=== PATIENT | male | born 1970 | race Caucasian/White ===

== ENCOUNTER 2019-09-27 12:24 | Inpatient (IN) | payer MEDICARE, OTHER ==
[2019-09-27] VITALS (21 sets, daily range): BP systolic 64–186; BP diastolic 19–145
[~2019-09-27] VITALS: Ht 185.4 cm; Wt 86.6 kg
[2019-09-27] MEDS ORDERED: ETOMIDATE 2MG/ML 10ML VIAL IV ONE (12:45)
[2019-09-27] MEDS ORDERED: SUCCINYLCHOLINE CHLORIDE 200MG/10ML IV ONE (12:45)
[2019-09-27] MEDS ORDERED: PROPOFOL 200MG/20ML VIAL IV ONE (12:45)
[2019-09-27] MEDS ORDERED: VANCOMYCIN 1 G PREMIX 200 ML IV ONE (12:45)
[2019-09-27] MEDS ORDERED: PIPERACILLIN/TAZ 3.375G PREMIX 50 ML IV ONE ×2 (12:45→18:00)
[2019-09-27] MEDS ORDERED: SODIUM CHLORIDE 0.9% 1000ML BAG (SEPSIS BOLUS) IV ONE (12:45)
[2019-09-27] MEDS ORDERED: NALOXONE HCL 1 MG/ML 2ML VIAL ONE (12:46)
[2019-09-27] MEDS ORDERED: NOREPINEPHRINE 4MG/250ML PMX 250 ML IV ONE ×3 (12:56→16:14)
[2019-09-27 13:14] LABS: HEMATOCRIT. 43.3 % (42.0-52.0); HEMOGLOBIN. 14.3 g/dL (14.0-18.0); MEAN CORPUSCULAR HEMOGLOBIN 31.3 pg (28.0-32.0); MEAN CORPUSCULAR VOLUME 94.8 fL (80.0-94.0); MEAN PLATELET VOLUME 7.9 fl (7.4-10.4); PLATELET 336 x1000/uL (130-400); RED BLOOD CELL COUNT 4.57 mill/uL (4.7-6.1); RED CELL DISTRIBUTION WIDTH 14.5 % (11.6-14.6)
[2019-09-27 13:16] LABS: PARTIAL THROMBOPLASTIN TIME 41.1 sec (23.4-31.0); PROTHROMBIN TIME 10.3 sec (9.6-11.0)
[2019-09-27 13:23] LABS: CHLORIDE 69 mEq/L (98-107)
[2019-09-27 13:27] LABS: ETHANOL BLOOD < 10 mg/dL
[2019-09-27] MEDS ORDERED: CALCIUM CHLORIDE 1GM/10ML SYR IV ONE ×2 (13:45→14:15)
[2019-09-27] MEDS ORDERED: SODIUM POLYSTYRENE SULFONATE 15 G/60 ML BOT NG ONE (13:45)
[2019-09-27] MEDS ORDERED: INSULIN REGULAR (HUMULIN R) 300UNITS/3ML IV ONE (13:45)
[2019-09-27] MEDS ORDERED: DEXTROSE 50% WATER 50ML SYRINGE IV ONE (13:45)
[2019-09-27] MEDS ORDERED: ALBUTEROL (0.083%) 2.5MG/3ML NEB HHN ONE (13:45)
[2019-09-27] MEDS ORDERED: VECURONIUM BROMIDE 10 MG/VIAL IV ONE (13:45)
[2019-09-27] MEDS ORDERED: SODIUM BICARBONATE 8.4% 1 MEQ/ML 50ML SYR IV ONE ×2 (13:45→14:45)
[2019-09-27] MEDS ORDERED: PROPOFOL 10MG/ML 100ML 100 ML IV SCH (13:45)
[2019-09-27] MEDS ORDERED: LACTULOSE 20G/30ML UDC NG ONE (14:00)
[2019-09-27 14:33] LABS: NUCLEATED RED BLOOD CELLS 3 /100 WBC; PLATELET ESTIMATE NORMAL
[2019-09-27 14:33] LABS: BG BASE EXCESS -26.4 mmol/L (-2.0-2.0); BG CARBOXYHEMOGLOBIN 0.1 % (0.5-1.5); BG DEOXYHEMOGLOBIN 0.4 % (0.0-5.0); BG FRACTION INSPIRED OXYGEN 100; BG HCO3 ACT 6.2 mmol/L (22.0-26.0); BG METHEMOGLOBIN 0.5 % (0.0-1.5); BG OXYGEN SATURATION 99.6 % (92.0-98.5); BG PCO2 34.3 mmHg (35.0-45.0); BG PH 6.875 (7.350-7.450); BG PO2 410.8 mmHg (75.0-100.0); BG SAMPLE SITE RIGHT RADIAL; BG TIDAL VOLUME(mL) 550 mL; BG TOTAL HEMOGLOBIN 12.5 g/dL (12.0-18.0); BG VENT MODE VENT - A/C; BG VENT RATE 16 set
[2019-09-27] MEDS ORDERED: ACETAMINOPHEN 650MG SUPP PR PRN (15:00)
[2019-09-27] MEDS ORDERED: NOREPINEPHRINE 4 MG in DEXT 5% WATER 246 ML IV PRN (15:45)
[2019-09-27] MEDS ORDERED: PHENYLEPHRINE 10 MG in DEXT 5% WATER 249 ML IV PRN (15:45)
[2019-09-27] MEDS ORDERED: IPRATROPIUM/ALBUTEROL 0.5-3(2.5)MG/3ML NEB HHN PRN (15:45)
[2019-09-27] MEDS ORDERED: SODIUM BICARBONATE 8.4% 1 MEQ/ML 50ML SYR IV NR (17:57)
[2019-09-27] MEDS: PHENYLEPHRINE 40 MG in DEXT 5% WATER 246 ML IV PRN ×2 (18:12→22:38)
[2019-09-27] MEDS: NOREPINEPHRINE 16 MG in DEXT 5% WATER 234 ML IV PRN (18:12)
[2019-09-27] MEDS: VASOPRESSIN 10 UNIT in SODIUM CHLORIDE 0.9% 99.5 ML IV PRN ×2 (19:13→23:02)
[2019-09-27] MEDS ORDERED: DOPAMINE 800MG PREMIX (DOUBLE) 250 ML IV PRN (20:00)
[2019-09-27] MEDS: IPRATROPIUM/ALBUTEROL 0.5-3(2.5)MG/3ML NEB HHN SCH (20:05)
[2019-09-27] MEDS ORDERED: VANCOMYCIN 1 G PREMIX 200 ML IV NR (21:00)
[2019-09-27] MEDS ORDERED: SODIUM BICARBONATE 150 MEQ in SODIUM CHLORIDE 0.45% 1,000 ML IV SCH (21:00)
[2019-09-27] MEDS: HEPARIN 5000 UNITS/ML VIAL SUBCUT SCH (21:00)
[2019-09-27] MEDS: PROPOFOL 10MG/ML 100ML 100 ML IV PRN (23:05)
[2019-09-27] MEDS: PIPERACILLIN/TAZOBACTAM 2.25 G in DEXTROSE 5% WATER 50 ML IV SCH (23:25)
[2019-09-28] VITALS (111 sets, daily range): BP systolic 67–190; BP diastolic 32–104
[2019-09-28 01:06] LABS: BG BASE EXCESS -4.9 mmol/L (-2.0-2.0); BG CARBOXYHEMOGLOBIN 0.8 % (0.5-1.5); BG DEOXYHEMOGLOBIN 1.3 % (0.0-5.0); BG FRACTION INSPIRED OXYGEN 50; BG HCO3 ACT 19.1 mmol/L (22.0-26.0); BG METHEMOGLOBIN 0.3 % (0.0-1.5); BG OXYGEN SATURATION 98.7 % (92.0-98.5); BG OXYHEMOGLOBIN 97.6 % (94.0-97.0); BG PCO2 32.5 mmHg (35.0-45.0); BG PH 7.386 (7.350-7.450); BG PIP 27 cmH2O; BG PO2 143.8 mmHg (75.0-100.0); BG SAMPLE SITE RIGHT RADIAL; BG TIDAL VOLUME(mL) 550 mL; BG TOTAL HEMOGLOBIN 14.8 g/dL (12.0-18.0); BG VENT MODE VENT - A/C; BG VENT RATE 24 set
[2019-09-28] MEDS: PROPOFOL 10MG/ML 100ML 100 ML IV PRN (01:37)
[2019-09-28] MEDS: PIPERACILLIN/TAZOBACTAM 2.25 G in DEXTROSE 5% WATER 50 ML IV SCH ×4 (01:44→20:04)
[2019-09-28] MEDS: IPRATROPIUM/ALBUTEROL 0.5-3(2.5)MG/3ML NEB HHN SCH ×4 (02:04→20:14)
[2019-09-28] MEDS: PHENYLEPHRINE 40 MG in DEXT 5% WATER 246 ML IV PRN (02:19)
[2019-09-28] MEDS: NOREPINEPHRINE 16 MG in DEXT 5% WATER 234 ML IV PRN (02:21)
[2019-09-28] MEDS: VASOPRESSIN 10 UNIT in SODIUM CHLORIDE 0.9% 99.5 ML IV PRN ×2 (02:49→06:26)
[2019-09-28 05:35] LABS: CHLORIDE 102 mEq/L (98-107)
[2019-09-28 05:39] LABS: HEMATOCRIT. 38.3 % (42.0-52.0); HEMOGLOBIN. 13.1 g/dL (14.0-18.0); MEAN CORPUSCULAR HEMOGLOBIN 31.2 pg (28.0-32.0); MEAN CORPUSCULAR VOLUME 91.2 fL (80.0-94.0); MEAN PLATELET VOLUME 7.6 fl (7.4-10.4); PLATELET 184 x1000/uL (130-400); RED CELL DISTRIBUTION WIDTH 14.3 % (11.6-14.6)
[2019-09-28] MEDS: PHENYLEPHRINE 80 MG in DEXT 5% WATER 492 ML IV PRN (06:27)
[2019-09-28 07:41] LABS: BG BASE EXCESS -5.3 mmol/L (-2.0-2.0); BG CARBOXYHEMOGLOBIN 0.4 % (0.5-1.5); BG DEOXYHEMOGLOBIN 2.1 % (0.0-5.0); BG FRACTION INSPIRED OXYGEN 50; BG HCO3 ACT 18.6 mmol/L (22.0-26.0); BG METHEMOGLOBIN 0.1 % (0.0-1.5); BG OXYGEN SATURATION 97.9 % (92.0-98.5); BG OXYHEMOGLOBIN 97.4 % (94.0-97.0); BG PCO2 31.9 mmHg (35.0-45.0); BG PH 7.383 (7.350-7.450); BG PO2 119.7 mmHg (75.0-100.0); BG SAMPLE SITE RIGHT RADIAL; BG TIDAL VOLUME(mL) 550 mL; BG TOTAL HEMOGLOBIN 14.5 g/dL (12.0-18.0); BG VENT MODE VENT - A/C; BG VENT RATE 24 set
[2019-09-28] MEDS ORDERED: KCL 20MEQ/100ML PREMIX 100 ML IV ONE (08:00)
[2019-09-28] MEDS: PANTOPRAZOLE SODIUM 40 MG/VIAL IV SCH (08:04)
[2019-09-28] MEDS: HEPARIN 5000 UNITS/ML VIAL SUBCUT SCH ×2 (08:06→20:04)
[2019-09-28] MEDS: WATER IV PRN (08:43)
[2019-09-28] MEDS: DEXT 5% IV PRN (08:43)
[2019-09-28] MEDS: NOREPINEPHRINE IV PRN (08:43)
[2019-09-28 09:01] LABS: NUCLEATED RED BLOOD CELLS 4 /100 WBC
[2019-09-28 09:02] LABS: PLATELET ESTIMATE NORMAL
[2019-09-28] MEDS: SODIUM BICARBONATE 100 MEQ in DEXTROSE 5% WATER 1,000 ML IV SCH (09:10)
[2019-09-28] MEDS: ACETAMINOPHEN 325MG TABLET PO PRN (09:10)
[2019-09-28] MEDS ORDERED: HYDR50SY PO (09:45)
[2019-09-28] MEDS ORDERED: GABA300S PO (09:45)
[2019-09-28] MEDS ORDERED: QUET200T MT (09:45)
[2019-09-28] MEDS ORDERED: LURA80TA PO (09:45)
[2019-09-28] MEDS ORDERED: SERT100T MT (09:45)
[2019-09-28] MEDS ORDERED: FENTANYL CITRATE/PF 500 MCG in SODIUM CHLORIDE 0.9% 40 ML IV PRN (10:30)
[2019-09-28 16:14] LABS: CLARITY URINE TURBID (CLEAR); COLOR URINE DARK YELLOW (YELLOW); KETONES URINE TRACE (NEGATIVE); LEUKOCYTE ESTERASE URINE TRACE (NEGATIVE); NITRITE URINE NEGATIVE (NEGATIVE); OCCULT BLOOD URINE 3+ (NEGATIVE); PROTEIN URINE 2+ (NEGATIVE); SPECIFIC GRAVITY URINE 1.016 (1.005-1.030); UROBILINOGEN URINE 0.2 E.U./dL (0.2-1.0)
[2019-09-28] MEDS ORDERED: SODIUM BICARBONATE 100 MEQ in DEXTROSE 5% WATER 1,000 ML IV SCH (16:15)
[2019-09-28 16:31] LABS: CANNABINOID URINE SCREEN PRESUMTIVE POSITIVE (NEGATIVE); PHENCYCLIDINE URINE SCREEN NEGATIVE (NEGATIVE)
[2019-09-28 16:32] LABS: *AMPHETAMINES SCREEN URINE NEGATIVE (NEGATIVE); *BARBITURATES SCREEN URINE NEGATIVE (NEGATIVE); *BENZODIAZEPINES SCREEN URINE NEGATIVE (NEGATIVE); *COCAINE SCREEN URINE NEGATIVE (NEGATIVE); METHADONE URINE SCREEN NEGATIVE (NEGATIVE); OPIATES URINE SCREEN NEGATIVE (NEGATIVE)
[2019-09-28] MEDS: LORAZEPAM 2MG/ML CPJ IV PRN (22:20)
[2019-09-29] VITALS (93 sets, daily range): BP systolic 69–191; BP diastolic 38–119
[2019-09-29] MEDS: PIPERACILLIN/TAZOBACTAM 2.25 G in DEXTROSE 5% WATER 50 ML IV SCH ×2 (01:16→07:49)
[2019-09-29] MEDS: SODIUM BICARBONATE 100 MEQ in DEXTROSE 5% WATER 1,000 ML IV SCH (03:44)
[2019-09-29] MEDS: IPRATROPIUM/ALBUTEROL 0.5-3(2.5)MG/3ML NEB HHN SCH ×4 (04:10→20:34)
[2019-09-29] MEDS: LORAZEPAM 2MG/ML CPJ IV PRN (04:34)
[2019-09-29 05:37] LABS: HEMATOCRIT. 37.6 % (42.0-52.0); HEMOGLOBIN. 12.6 g/dL (14.0-18.0); MEAN CORPUSCULAR HEMOGLOBIN 30.3 pg (28.0-32.0); MEAN CORPUSCULAR VOLUME 90.9 fL (80.0-94.0); MEAN PLATELET VOLUME 7.9 fl (7.4-10.4); PLATELET 149 x1000/uL (130-400); RED BLOOD CELL COUNT 4.14 mill/uL (4.7-6.1); RED CELL DISTRIBUTION WIDTH 14.4 % (11.6-14.6)
[2019-09-29 05:54] LABS: PHOSPHORUS 8.1 mg/dL (2.5-4.9)
[2019-09-29] MEDS: PANTOPRAZOLE SODIUM 40 MG/VIAL IV SCH (07:47)
[2019-09-29] MEDS: HEPARIN 5000 UNITS/ML VIAL SUBCUT SCH ×2 (07:49→23:03)
[2019-09-29] MEDS: PHENYLEPHRINE 80 MG in DEXT 5% WATER 492 ML IV PRN (07:50)
[2019-09-29] MEDS: DEXT 5% IV PRN (07:50)
[2019-09-29] MEDS: WATER IV PRN (07:50)
[2019-09-29] MEDS: NOREPINEPHRINE IV PRN (07:50)
[2019-09-29 07:52] LABS: PLATELET ESTIMATE NORMAL
[2019-09-29 08:00] LABS: BG BASE EXCESS 0.1 mmol/L (-2.0-2.0); BG CARBOXYHEMOGLOBIN 0.3 % (0.5-1.5); BG DEOXYHEMOGLOBIN 4.4 % (0.0-5.0); BG FRACTION INSPIRED OXYGEN 40; BG HCO3 ACT 24.8 mmol/L (22.0-26.0); BG METHEMOGLOBIN 0.4 % (0.0-1.5); BG OXYGEN SATURATION 95.6 % (92.0-98.5); BG OXYHEMOGLOBIN 94.9 % (94.0-97.0); BG PCO2 40.6 mmHg (35.0-45.0); BG PH 7.404 (7.350-7.450); BG PO2 83.5 mmHg (75.0-100.0); BG SAMPLE SITE RIGHT BRACHIAL; BG TIDAL VOLUME(mL) 550 mL; BG TOTAL HEMOGLOBIN 12.7 g/dL (12.0-18.0); BG VENT MODE VENT - A/C; BG VENT RATE 20 set
[2019-09-29] MEDS ORDERED: POTASSIUM CHLORIDE 20MEQ TABLET SR PO NR (08:30)
[2019-09-29] MEDS: ALBUMIN HUMAN 25GM/500ML (5%) IV NR ×2 (08:47→11:26)
[2019-09-29] MEDS ORDERED: METRONIDAZOLE 250MG TABLET NG SCH (10:30)
[2019-09-29] MEDS ORDERED: HEPARIN SODIUM 1,000 UNIT/1ML VIAL IV NR (14:15)
[2019-09-29] MEDS: MEROPENEM 500 MG in SODIUM CHLORIDE 0.9% 50 ML IV SCH (15:47)
[2019-09-29 17:15] LABS: BG BASE EXCESS 0.2 mmol/L (-2.0-2.0); BG CARBOXYHEMOGLOBIN 0.3 % (0.5-1.5); BG DEOXYHEMOGLOBIN 2.9 % (0.0-5.0); BG FRACTION INSPIRED OXYGEN 40; BG HCO3 ACT 24.4 mmol/L (22.0-26.0); BG METHEMOGLOBIN 0.1 % (0.0-1.5); BG OXYGEN SATURATION 97.1 % (92.0-98.5); BG OXYHEMOGLOBIN 96.7 % (94.0-97.0); BG PCO2 38.1 mmHg (35.0-45.0); BG PH 7.425 (7.350-7.450); BG PO2 99.9 mmHg (75.0-100.0); BG PRESSURE SUPPORT 8; BG SAMPLE SITE RIGHT BRACHIAL; BG TOTAL HEMOGLOBIN 11.6 g/dL (12.0-18.0); BG VENT MODE VENT - CPAP
[2019-09-29] MEDS: VANCOMYCIN HCL 1000 MG/20 ML ORAL NG SCH (20:28)
[2019-09-30] VITALS (44 sets, daily range): BP systolic 81–159; BP diastolic 39–100
[2019-09-30] MEDS: VANCOMYCIN HCL 1000 MG/20 ML ORAL NG SCH ×5 (00:21→23:27)
[2019-09-30] MEDS: IPRATROPIUM/ALBUTEROL 0.5-3(2.5)MG/3ML NEB HHN SCH ×4 (01:30→20:44)
[2019-09-30] MEDS: LORAZEPAM 2MG/ML CPJ IV PRN ×2 (02:26→23:28)
[2019-09-30 05:55] LABS: HEMOGLOBIN. 11.5 g/dL (14.0-18.0); MEAN CORPUSCULAR HEMOGLOBIN 30.7 pg (28.0-32.0); MEAN CORPUSCULAR VOLUME 91.1 fL (80.0-94.0); MEAN PLATELET VOLUME 7.9 fl (7.4-10.4); PLATELET 88 x1000/uL (130-400); RED BLOOD CELL COUNT 3.74 mill/uL (4.7-6.1); RED CELL DISTRIBUTION WIDTH 14.4 % (11.6-14.6)
[2019-09-30] MEDS: PANTOPRAZOLE SODIUM 40 MG/VIAL IV SCH (09:00)
[2019-09-30] MEDS: HEPARIN 5000 UNITS/ML VIAL SUBCUT SCH (09:00)
[2019-09-30] MEDS ORDERED: POTASSIUM CHLORIDE 20MEQ/PACKET PO NR (10:00)
[2019-09-30] MEDS: FOLIC ACID/VITAMIN B COMP W-C TABLET PO SCH (10:17)
[2019-09-30 10:56] LABS: PLATELET ESTIMATE DECREASED
[2019-09-30] MEDS: CALCIUM ACETATE 667MG CAPSULE PO SCH ×2 (13:54→18:47)
[2019-09-30] MEDS: MEROPENEM 500 MG in SODIUM CHLORIDE 0.9% 50 ML IV SCH (15:00)
[2019-09-30 15:05] LABS: HEPATITIS B SURFACE ANTIGEN NEGATIVE
[2019-09-30 15:34] LABS: HEPATITIS A AB IGM NEGATIVE (NEGATIVE)
[2019-09-30] MEDS ORDERED: VANCOMYCIN 1 G PREMIX 200 ML IV NR (17:00)
[2019-10-01] VITALS (46 sets, daily range): BP systolic 40–146; BP diastolic 22–89
[2019-10-01] MEDS: IPRATROPIUM/ALBUTEROL 0.5-3(2.5)MG/3ML NEB HHN SCH ×4 (01:45→21:07)
[2019-10-01] MEDS: LORAZEPAM 2MG/ML CPJ IV PRN ×4 (02:30→19:18)
[2019-10-01 04:41] LABS: HEMATOCRIT. 31.8 % (42.0-52.0); HEMOGLOBIN. 10.7 g/dL (14.0-18.0); MEAN CORPUSCULAR HEMOGLOBIN 30.6 pg (28.0-32.0); MEAN CORPUSCULAR VOLUME 90.8 fL (80.0-94.0); MEAN PLATELET VOLUME 8.1 fl (7.4-10.4); PLATELET 68 x1000/uL (130-400); RED CELL DISTRIBUTION WIDTH 14.7 % (11.6-14.6)
[2019-10-01] MEDS: VANCOMYCIN HCL 1000 MG/20 ML ORAL NG SCH ×3 (06:00→18:56)
[2019-10-01] MEDS ORDERED: POTASSIUM CHLORIDE 20MEQ/PACKET PO NR (06:45)
[2019-10-01] MEDS ORDERED: POTASSIUM CHLORIDE INJ 40 MEQ in DEXT 5% WATER 250 ML IV NR (08:00)
[2019-10-01] MEDS: CALCIUM ACETATE 667MG CAPSULE PO SCH ×3 (08:00→18:56)
[2019-10-01] MEDS: FOLIC ACID/VITAMIN B COMP W-C TABLET PO SCH (08:00)
[2019-10-01 12:22] LABS: NUCLEATED RED BLOOD CELLS 1 /100 WBC
[2019-10-01 12:23] LABS: PLATELET ESTIMATE DECREASED
[2019-10-01 13:06] LABS: COMPLEMENT C3 119 mg/dL (82-167)
[2019-10-01] MEDS: MEROPENEM 500 MG in SODIUM CHLORIDE 0.9% 50 ML IV SCH (15:53)
[2019-10-01] MEDS: ONDANSETRON HCL 4MG/2ML INJ IV PRN (19:18)
[2019-10-01] MEDS: ACETAMINOPHEN 325MG TABLET PO PRN (19:18)
[2019-10-02] VITALS (12 sets, daily range): BP systolic 107–139; BP diastolic 48–95
[2019-10-02] MEDS: LORAZEPAM 2MG/ML CPJ IV PRN ×4 (00:09→20:22)
[2019-10-02] MEDS: VANCOMYCIN HCL 1000 MG/20 ML ORAL NG SCH ×4 (00:09→18:27)
[2019-10-02 08:10] LABS: PHOSPHORUS 3.4 mg/dL (2.5-4.9)
[2019-10-02 08:11] LABS: HEMATOCRIT. 33.3 % (42.0-52.0); MEAN CORPUSCULAR HEMOGLOBIN 30.3 pg (28.0-32.0); MEAN CORPUSCULAR VOLUME 91.7 fL (80.0-94.0); MEAN PLATELET VOLUME 9.1 fl (7.4-10.4); PLATELET 73 x1000/uL (130-400); RED BLOOD CELL COUNT 3.63 mill/uL (4.7-6.1); RED CELL DISTRIBUTION WIDTH 14.3 % (11.6-14.6)
[2019-10-02] MEDS: IPRATROPIUM/ALBUTEROL 0.5-3(2.5)MG/3ML NEB HHN SCH ×3 (08:54→20:40)
[2019-10-02] MEDS: FOLIC ACID/VITAMIN B COMP W-C TABLET PO SCH (09:51)
[2019-10-02] MEDS: CALCIUM ACETATE 667MG CAPSULE PO SCH ×3 (09:51→18:27)
[2019-10-02] MEDS ORDERED: POTASSIUM CHLORIDE INJ 40 MEQ in DEXT 5% WATER 250 ML IV ONE (10:00)
[2019-10-02 13:11] LABS: PLATELET ESTIMATE DECREASED
[2019-10-02 14:09] LABS: HIV SCREEN 4G Non Reactive (Non Reactive)
[2019-10-02] MEDS: MEROPENEM 500 MG in SODIUM CHLORIDE 0.9% 50 ML IV SCH (14:27)
[2019-10-02] MEDS: BENZONATATE 100MG CAPSULE PO PRN (20:22)
[2019-10-03] VITALS (8 sets, daily range): BP systolic 105–149; BP diastolic 54–66
[2019-10-03] MEDS: VANCOMYCIN HCL 1000 MG/20 ML ORAL NG SCH ×5 (00:27→23:08)
[2019-10-03] MEDS: ONDANSETRON HCL 4MG/2ML INJ IV PRN ×3 (00:35→17:48)
[2019-10-03] MEDS: LORAZEPAM 2MG/ML CPJ IV PRN ×3 (00:35→09:16)
[2019-10-03] MEDS: IPRATROPIUM/ALBUTEROL 0.5-3(2.5)MG/3ML NEB HHN SCH ×4 (02:20→22:01)
[2019-10-03] MEDS: BENZONATATE 100MG CAPSULE PO PRN (05:04)
[2019-10-03 06:44] LABS: HEMATOCRIT. 31.7 % (42.0-52.0); HEMOGLOBIN. 10.6 g/dL (14.0-18.0); MEAN CORPUSCULAR HEMOGLOBIN 30.6 pg (28.0-32.0); MEAN CORPUSCULAR VOLUME 91.3 fL (80.0-94.0); MEAN PLATELET VOLUME 9.4 fl (7.4-10.4); PLATELET 119 x1000/uL (130-400); RED BLOOD CELL COUNT 3.47 mill/uL (4.7-6.1); RED CELL DISTRIBUTION WIDTH 14.6 % (11.6-14.6)
[2019-10-03] MEDS: FOLIC ACID/VITAMIN B COMP W-C TABLET PO SCH (09:15)
[2019-10-03] MEDS: CALCIUM ACETATE 667MG CAPSULE PO SCH ×3 (09:16→17:35)
[2019-10-03 13:06] LABS: ANTI-PROTEINASE 3 ABS < 3.5 U/mL (0.0-3.5)
[2019-10-03] MEDS: MEROPENEM 500 MG in SODIUM CHLORIDE 0.9% 50 ML IV SCH (14:49)
[2019-10-03 15:11] LABS: ATYPICAL P-ANCA <1:20 titer (Neg:<1:20); CYTOPLASMIC C-ANCA <1:20 titer (Neg:<1:20); PERINUCLEAR P-ANCA <1:20 titer (Neg:<1:20)
[2019-10-03 15:23] LABS: PLATELET ESTIMATE SLIGHTLY DECREASED
[2019-10-03 17:06] LABS: ANTI-NUCLEAR ANTIBODIES DIRECT Negative (Negative)
[2019-10-03] MEDS ORDERED: VANCOMYCIN 1 G PREMIX 200 ML IV SCH (20:00)
[2019-10-03] MEDS ORDERED: OMEPRAZOLE 20MG CAPSULE EXTENDED RELEASE PO NR (22:15)
[2019-10-03] MEDS ORDERED: GUAIFENESIN-DM 200MG-20MG/10ML UDC PO PRN (22:30)
[2019-10-04] VITALS (12 sets, daily range): BP systolic 101–136; BP diastolic 52–92
[2019-10-04] MEDS: IPRATROPIUM/ALBUTEROL 0.5-3(2.5)MG/3ML NEB HHN SCH ×4 (02:31→21:06)
[2019-10-04] MEDS: OMEPRAZOLE 20MG CAPSULE EXTENDED RELEASE PO SCH ×2 (06:25→21:13)
[2019-10-04] MEDS: VANCOMYCIN HCL 1000 MG/20 ML ORAL NG SCH ×4 (06:26→23:37)
[2019-10-04 08:32] LABS: HEMATOCRIT. 29.5 % (42.0-52.0); HEMOGLOBIN. 9.7 g/dL (14.0-18.0); MEAN CORPUSCULAR HEMOGLOBIN 29.8 pg (28.0-32.0); MEAN CORPUSCULAR VOLUME 90.8 fL (80.0-94.0); MEAN PLATELET VOLUME 9.6 fl (7.4-10.4); PLATELET 222 x1000/uL (130-400); RED BLOOD CELL COUNT 3.25 mill/uL (4.7-6.1); RED CELL DISTRIBUTION WIDTH 14.6 % (11.6-14.6)
[2019-10-04 08:41] LABS: CHLORIDE 100 mEq/L (98-107)
[2019-10-04] MEDS: FOLIC ACID/VITAMIN B COMP W-C TABLET PO SCH (09:07)
[2019-10-04] MEDS: CALCIUM ACETATE 667MG CAPSULE PO SCH ×3 (09:07→17:25)
[2019-10-04] MEDS: ACETAMINOPHEN 325MG TABLET PO PRN ×2 (09:46→16:15)
[2019-10-04] MEDS ORDERED: CEFTRIAXONE 1 G PREMIX 50 ML IV SCH (12:00)
[2019-10-04] MEDS ORDERED: SODIUM CHLORIDE 45ML SPRAY NS PRN (15:00)
[2019-10-04] MEDS ORDERED: MEROPENEM 1,000 MG in SODIUM CHLORIDE 0.9% 100 ML IV SCH (15:15)
[2019-10-04] MEDS: BENZONATATE 100MG CAPSULE PO PRN (16:15)
[2019-10-04] MEDS: MEROPENEM 500MG in NORMAL SALINE 50ML IV SCH (17:25)
[2019-10-04] MEDS: HEPARIN 5000 UNITS/ML VIAL SUBCUT SCH (21:00)
[2019-10-04] MEDS: FLUTICASONE PROPIONATE 50MCG/SPRAY BOTTLE BOTHNSTRLS SCH (21:13)
[2019-10-04] MEDS: THROAT LOZENGES-BENZOCAINE/MENTH/CETYLPYRD CL LOZENGES MM PRN (21:34)
[2019-10-05] VITALS (15 sets, daily range): BP systolic 100–130; BP diastolic 46–91
[2019-10-05] MEDS: IPRATROPIUM/ALBUTEROL 0.5-3(2.5)MG/3ML NEB HHN SCH ×4 (01:22→20:42)
[2019-10-05] MEDS: THROAT LOZENGES-BENZOCAINE/MENTH/CETYLPYRD CL LOZENGES MM PRN (04:24)
[2019-10-05] MEDS: VANCOMYCIN HCL 1000 MG/20 ML ORAL NG SCH ×3 (05:20→18:00)
[2019-10-05 05:46] LABS: BASOPHILS % 0.3 % (0.0-2.0); EOSINOPHILS % 0.6 % (0.0-5.0); HEMATOCRIT. 30.5 % (42.0-52.0); HEMOGLOBIN. 10.1 g/dL (14.0-18.0); LYMPHOCYTES % 8.9 % (20.0-50.0); MEAN CORPUSCULAR HEMOGLOBIN 30.3 pg (28.0-32.0); MEAN CORPUSCULAR VOLUME 91.4 fL (80.0-94.0); MONOCYTES % 8.8 % (2.0-8.0); NEUTROPHILS % 81.4 % (40.0-76.0); PARTIAL THROMBOPLASTIN TIME 30.1 sec (23.4-31.0); PLATELET 396 x1000/uL (130-400); PROTHROMBIN TIME 10.7 sec (9.6-11.0); RED BLOOD CELL COUNT 3.34 mill/uL (4.7-6.1); RED CELL DISTRIBUTION WIDTH 14.3 % (11.6-14.6)
[2019-10-05 07:03] LABS: PLATELET ESTIMATE NORMAL
[2019-10-05] MEDS: FLUTICASONE PROPIONATE 50MCG/SPRAY BOTTLE BOTHNSTRLS SCH ×2 (09:00→21:28)
[2019-10-05] MEDS: OMEPRAZOLE 20MG CAPSULE EXTENDED RELEASE PO SCH ×2 (09:18→21:28)
[2019-10-05] MEDS: FOLIC ACID/VITAMIN B COMP W-C TABLET PO SCH (09:18)
[2019-10-05] MEDS: CALCIUM ACETATE 667MG CAPSULE PO SCH ×3 (09:18→18:00)
[2019-10-05 13:06] LABS: ANTI-MYELOPEROXIDASE AB < 9.0 U/mL (0.0-9.0)
[2019-10-05] MEDS: ACETAMINOPHEN 325MG TABLET PO PRN ×2 (13:12→21:28)
[2019-10-05] MEDS ORDERED: LIDOCAINE HCL 1% 20ML VIAL (Pyxis) INJ ONE (13:40)
[2019-10-05] MEDS ORDERED: HEPARIN 1000 UNITS/ML 10ML ONE (13:40)
[2019-10-05] MEDS ORDERED: SODIUM BICARBONATE 4% (2.4MEQ) 5ML VIAL IV ONE (13:40)
[2019-10-05] MEDS ORDERED: FENTANYL CITRATE/PF 50MCG/ML 2ML VIAL ONE (13:47)
[2019-10-05] MEDS: MEROPENEM 500MG in NORMAL SALINE 50ML IV SCH (17:41)
[2019-10-06] VITALS (11 sets, daily range): BP systolic 101–134; BP diastolic 57–79
[2019-10-06] MEDS: VANCOMYCIN HCL 1000 MG/20 ML ORAL NG SCH ×4 (00:18→17:39)
[2019-10-06] MEDS: IPRATROPIUM/ALBUTEROL 0.5-3(2.5)MG/3ML NEB HHN SCH ×4 (02:22→20:54)
[2019-10-06] MEDS: LORAZEPAM 2MG/ML CPJ IV PRN (03:40)
[2019-10-06] MEDS: CALCIUM ACETATE 667MG CAPSULE PO SCH ×3 (08:27→17:39)
[2019-10-06] MEDS: FOLIC ACID/VITAMIN B COMP W-C TABLET PO SCH (08:27)
[2019-10-06] MEDS: OMEPRAZOLE 20MG CAPSULE EXTENDED RELEASE PO SCH ×2 (08:27→22:01)
[2019-10-06] MEDS: FLUTICASONE PROPIONATE 50MCG/SPRAY BOTTLE BOTHNSTRLS SCH ×2 (08:28→22:01)
[2019-10-06] MEDS ORDERED: VANJ5 PO (13:22)
[2019-10-06] MEDS: MEROPENEM 500MG in NORMAL SALINE 50ML IV SCH (17:02)
[2019-10-06] MEDS: SERTRALINE HCL 100MG TABLET PO SCH (17:02)
[2019-10-07] VITALS: BP 127/67
[2019-10-07] MEDS: LORAZEPAM 2MG/ML CPJ IV PRN ×2 (00:49→06:52)
[2019-10-07] MEDS: IPRATROPIUM/ALBUTEROL 0.5-3(2.5)MG/3ML NEB HHN SCH ×4 (01:45→20:29)
[2019-10-07 04:00] VITALS: BP 143/70
[2019-10-07 08:00] VITALS: BP 119/63
[2019-10-07] MEDS: FOLIC ACID/VITAMIN B COMP W-C TABLET PO SCH (08:40)
[2019-10-07] MEDS: SERTRALINE HCL 100MG TABLET PO SCH (08:40)
[2019-10-07] MEDS: CALCIUM ACETATE 667MG CAPSULE PO SCH ×3 (08:40→11:58)
[2019-10-07] MEDS: OMEPRAZOLE 20MG CAPSULE EXTENDED RELEASE PO SCH ×2 (08:44→21:38)
[2019-10-07] MEDS: FLUTICASONE PROPIONATE 50MCG/SPRAY BOTTLE BOTHNSTRLS SCH ×2 (09:51→21:38)
[2019-10-07 12:00] VITALS: BP 118/65
[2019-10-07] MEDS: ACETAMINOPHEN 325MG TABLET PO PRN ×2 (12:11→22:00)
[2019-10-07 13:53] LABS: BASOPHILS % 0.7 % (0.0-2.0); EOSINOPHILS % 0.5 % (0.0-5.0); HEMATOCRIT. 28.8 % (42.0-52.0); HEMOGLOBIN. 9.7 g/dL (14.0-18.0); LYMPHOCYTES % 9.3 % (20.0-50.0); MEAN CORPUSCULAR HEMOGLOBIN 30.6 pg (28.0-32.0); MEAN CORPUSCULAR VOLUME 90.3 fL (80.0-94.0); MEAN PLATELET VOLUME 7.8 fl (7.4-10.4); MONOCYTES % 11.4 % (2.0-8.0); NEUTROPHILS % 78.1 % (40.0-76.0); PLATELET 557 x1000/uL (130-400); RED BLOOD CELL COUNT 3.18 mill/uL (4.7-6.1); RED CELL DISTRIBUTION WIDTH 14.1 % (11.6-14.6)
[2019-10-07 16:00] VITALS: BP 133/80
[2019-10-07] MEDS ORDERED: VISCOUS LIDOCAINE 2% 15 ML UDC MM PRN (16:00)
[2019-10-07] MEDS: VANCOMYCIN HCL 1000 MG/20 ML ORAL PO SCH ×2 (17:49→23:20)
[2019-10-07 20:00] VITALS: BP 138/79
[2019-10-07] MEDS ORDERED: HEPARIN 5000 UNITS/ML VIAL SUBCUT SCH (21:00)
[2019-10-07] MEDS: HEPARIN 5000 UNITS/ML VIAL SUBCUT SCH (21:44)
[2019-10-08] VITALS (7 sets, daily range): BP systolic 104–145; BP diastolic 46–72
[2019-10-08] MEDS: IPRATROPIUM/ALBUTEROL 0.5-3(2.5)MG/3ML NEB HHN SCH ×4 (01:55→21:45)
[2019-10-08] MEDS: VANCOMYCIN HCL 1000 MG/20 ML ORAL PO SCH ×3 (05:03→17:54)
[2019-10-08] MEDS: OMEPRAZOLE 20MG CAPSULE EXTENDED RELEASE PO SCH ×2 (08:26→21:07)
[2019-10-08] MEDS: FOLIC ACID/VITAMIN B COMP W-C TABLET PO SCH (08:26)
[2019-10-08] MEDS: HEPARIN 5000 UNITS/ML VIAL SUBCUT SCH ×2 (08:26→21:07)
[2019-10-08] MEDS: SERTRALINE HCL 100MG TABLET PO SCH (08:26)
[2019-10-08] MEDS: CALCIUM ACETATE 667MG CAPSULE PO SCH ×3 (08:27→17:54)
[2019-10-08] MEDS: FLUTICASONE PROPIONATE 50MCG/SPRAY BOTTLE BOTHNSTRLS SCH ×2 (08:27→21:07)
[2019-10-08] MEDS: ACETAMINOPHEN 325MG TABLET PO PRN (10:08)
[2019-10-08] MEDS: LORAZEPAM 2MG/ML CPJ IV PRN (21:07)
[2019-10-09] VITALS: BP 110/62
[2019-10-09] MEDS: VANCOMYCIN HCL 1000 MG/20 ML ORAL PO SCH ×3 (00:42→12:38)
[2019-10-09] MEDS: IPRATROPIUM/ALBUTEROL 0.5-3(2.5)MG/3ML NEB HHN SCH ×2 (02:33→08:59)
[2019-10-09 04:00] VITALS: BP 107/58
[2019-10-09 07:07] LABS: BASOPHILS % 1.2 % (0.0-2.0); EOSINOPHILS % 0.6 % (0.0-5.0); HEMATOCRIT. 27.1 % (42.0-52.0); HEMOGLOBIN. 9.2 g/dL (14.0-18.0); LYMPHOCYTES % 15.8 % (20.0-50.0); MEAN CORPUSCULAR HEMOGLOBIN 30.8 pg (28.0-32.0); MEAN CORPUSCULAR VOLUME 90.9 fL (80.0-94.0); MEAN PLATELET VOLUME 7.4 fl (7.4-10.4); MONOCYTES % 12.2 % (2.0-8.0); NEUTROPHILS % 70.2 % (40.0-76.0); PLATELET 632 x1000/uL (130-400); RED BLOOD CELL COUNT 2.99 mill/uL (4.7-6.1)
[2019-10-09 07:18] LABS: PHOSPHORUS 5.4 mg/dL (2.5-4.9)
[2019-10-09] MEDS: FOLIC ACID/VITAMIN B COMP W-C TABLET PO SCH (09:16)
[2019-10-09] MEDS: SERTRALINE HCL 100MG TABLET PO SCH (09:16)
[2019-10-09] MEDS: OMEPRAZOLE 20MG CAPSULE EXTENDED RELEASE PO SCH (09:16)
[2019-10-09] MEDS: CALCIUM ACETATE 667MG CAPSULE PO SCH (09:17)
[2019-10-09 10:00] VITALS: BP 113/82
[2019-10-09 10:52] LABS: INR 1.1; PARTIAL THROMBOPLASTIN TIME 27.4 sec (23.4-31.0); PROTHROMBIN TIME 11.4 sec (9.6-11.0)
[2019-10-09 12:01] VITALS: BP 122/69
[2019-10-09 14:24] VITALS: BP 107/70
[2019-10-10] MEDS ORDERED: EPOETIN ALFA 4000UNITS/ML VIAL SUBCUT SCH (21:00)
== END 2019-10-09 17:10 | disposition home health service (06) | DRG 871 ==
LOC: ER 13:34 → EDBD 13:34 → CVICU 14:17 → EDBEDREQ 14:38 → ENRESERV 17:02 → 5EST 10-01 23:40
PROVIDERS: ADMIT Internal Medicine; ATTEND Internal Medicine
PROC: 5A1945Z Respiratory Ventilation, 24-96 Consecutive Hours (ICD-10-PCS; principal; 2019-09-27)
PROC: 5A1D70Z Performance of Urinary Filtration, Intermittent, Less than 6 Hours Per Day (ICD-10-PCS; 2019-09-27)
PROC: 0BH17EZ Insertion of Endotracheal Airway into Trachea, Via Natural or Artificial Opening (ICD-10-PCS; 2019-09-27)
PROC: 5A1D70Z Performance of Urinary Filtration, Intermittent, Less than 6 Hours Per Day (ICD-10-PCS; 2019-09-29)
PROC: 5A1D70Z Performance of Urinary Filtration, Intermittent, Less than 6 Hours Per Day (ICD-10-PCS; 2019-10-01)
PROC: 5A1D70Z Performance of Urinary Filtration, Intermittent, Less than 6 Hours Per Day (ICD-10-PCS; 2019-10-03)
PROC: 5A1D70Z Performance of Urinary Filtration, Intermittent, Less than 6 Hours Per Day (ICD-10-PCS; 2019-10-05)
PROC: 02H633Z Insertion of Infusion Device into Right Atrium, Percutaneous Approach (ICD-10-PCS; 2019-10-05)
PROC: 0JH63XZ Insertion of Tunneled Vascular Access Device into Chest Subcutaneous Tissue and Fascia, Percutaneous Approach (ICD-10-PCS; 2019-10-05)
PROC: B518ZZA Fluoroscopy of Superior Vena Cava, Guidance (ICD-10-PCS; 2019-10-05)
PROC: 02PYX3Z Removal of Infusion Device from Great Vessel, External Approach (ICD-10-PCS; 2019-10-05)
PROC: 5A1D70Z Performance of Urinary Filtration, Intermittent, Less than 6 Hours Per Day (ICD-10-PCS; 2019-10-07)
PROC: 02HV33Z Insertion of Infusion Device into Superior Vena Cava, Percutaneous Approach (ICD-10-PCS; 2019-10-07)
PROC: B548ZZA Ultrasonography of Superior Vena Cava, Guidance (ICD-10-PCS; 2019-10-07)
DX: A41.53 Sepsis due to Serratia (principal); E43 Unspecified severe protein-calorie malnutrition; G92 Toxic encephalopathy; J96.01 Acute respiratory failure with hypoxia; J15.6 Pneumonia due to other Gram-negative bacteria; N18.6 End stage renal disease; R65.21 Severe sepsis with septic shock; K85.20 Alcohol induced acute pancreatitis without necrosis or infection; K76.7 Hepatorenal syndrome; R57.8 Other shock; E72.20 Disorder of urea cycle metabolism, unspecified; A04.72 Enterocolitis due to Clostridium difficile, not specified as recurrent; E87.2 Acidosis; M62.82 Rhabdomyolysis; N17.9 Acute kidney failure, unspecified; K86.0 Alcohol-induced chronic pancreatitis; I12.0 Hypertensive chronic kidney disease with stage 5 chronic kidney disease or end stage renal disease; K56.7 Ileus, unspecified; K72.90 Hepatic failure, unspecified without coma; F99 Mental disorder, not otherwise specified; K70.30 Alcoholic cirrhosis of liver without ascites; F10.10 Alcohol abuse, uncomplicated; R94.31 Abnormal electrocardiogram [ECG] [EKG]; E83.51 Hypocalcemia; E87.5 Hyperkalemia; D64.9 Anemia, unspecified; D69.6 Thrombocytopenia, unspecified; E78.1 Pure hyperglyceridemia; E83.39 Other disorders of phosphorus metabolism; E86.0 Dehydration; K70.10 Alcoholic hepatitis without ascites; F17.200 Nicotine dependence, unspecified, uncomplicated; E87.6 Hypokalemia; J31.0 Chronic rhinitis; R31.29 Other microscopic hematuria; Z99.2 Dependence on renal dialysis; Z68.25 Body mass index [BMI] 25.0-25.9, adult; Z78.1 Physical restraint status
CPT/HCPCS: 36415; 36556; 36558; 36589; 36600; 71045; 74018; 76705; 76770; 76937; 77001; 80048; 80053; 80076; 80202; 80305; 80307; 80320; 80329; 81003; 82140; 82150; 82330; 82375; 82550; 82805; 82962; 83036; 83520; 83605; 83735; 83880; 84100; 84145; 84443; 84478; 84484; 85025; 86038; 86160; 86256; 86705; 86706; 86709; 86803; 86850; 86900; 87070; 87077; 87106; 87186; 87340; 87389; 87493; 87804; 93005; 93306; 93970; 94002; 94640; 97116; 97161; 99291; A6261; C1750; C1752; C9113; J0696; J1644; J1815; J2060; J2185; J2310; J2370; J2405; J2543; J2704; J3010; J3370; J3480; J3490; J7030; J7040; J7042; J7050; J7060; J7070; J7611; J7620; P9041; G0480